=== PATIENT | female | born 1990 | race Caucasian/White ===

== ENCOUNTER 2022-04-20 16:00 | Emergency (ER) | payer OTHER ==
[~2022-04-20] VITALS: Ht 152.4 cm; Wt 49.1 kg
[2022-04-20 16:03] VITALS: TEMP 97.8
[2022-04-20 17:45] VITALS: BP 112/79; PULSE 92
== END 2022-04-20 17:45 | disposition home or self-care (01) ==
LOC: COL.ER 16:00
DX: R07.89 Other chest pain (principal); Z87.891 Personal history of nicotine dependence